=== PATIENT | female | born 1965 | race Caucasian/White ===

== ENCOUNTER 2019-06-29 06:41 | Emergency (ER) | payer OTHER ==
[~2019-06-29] VITALS: Ht 157.5 cm; Wt 70.5 kg
[2019-06-29] MEDS ORDERED: FLUO20CA19 PO (06:47)
[2019-06-29] MEDS ORDERED: SYNT75TA PO (06:47)
[2019-06-29 07:23] LABS: HEMATOCRIT 42.1 % (36.0-47.0); HEMOGLOBIN 13.6 g/dl (12.0-15.5); MEAN CORPUSCULAR HEMOGLOBIN 29.4 pg (27.0-33.0); MEAN CORPUSCULAR HGB CONC 32.3 g/dl (32.0-36.5); MEAN CORPUSCULAR VOLUME 90.9 fl (80.0-96.0); PLATELET COUNT, AUTOMATED 215 10^3/uL (150-450); RED BLOOD COUNT 4.63 10^6/uL (4.00-5.40); WHITE BLOOD COUNT 10.8 10^3/uL (4.0-10.0)
[2019-06-29 07:56] LABS: ALBUMIN 3.9 GM/DL (3.2-5.2); ALT/SGPT 18 U/L (12-78); BILIRUBIN,TOTAL 0.6 MG/DL (0.2-1.0); BLOOD UREA NITROGEN 10 MG/DL (7-18); CARBON DIOXIDE LEVEL 26 MEQ/L (21-32); CHLORIDE LEVEL 104 MEQ/L (98-107); CREATININE FOR GFR 0.76 MG/DL (0.55-1.30); GLOMERULAR FILTRATION RATE > 60.0 (>51); GLUCOSE, FASTING 117 MG/DL (70-100); POTASSIUM SERUM 3.7 MEQ/L (3.5-5.1); SODIUM LEVEL 137 MEQ/L (136-145)
[2019-06-29] MEDS ORDERED: ONDANSETRON 4MG/2ML VIAL (J2405) IV ONE (08:15)
[2019-06-29] MEDS ORDERED: NS 500 ML IV ONE (08:15)
[2019-06-29] MEDS ORDERED: MECLIZINE 25 MG TABLET PO ONE (08:15)
[2019-06-29 08:46] LABS: FREE T4 1.44 NG/DL (0.76-1.46)
--- NOTE | 2019-06-29 08:51 | REP ---
Clinical: Dizziness. Comparison: None . Findings: The ventricles, sulci, and cisterns are normal in position and appearance. Mccloud-white differentiation is maintained. No acute intracranial hemorrhage, mass/mass effect, pathology or trauma/injury. No evidence for acute infarction. No extra-axial fluid collection. Calvarium is intact. Paranasal sinuses and mastoid air cells are clear. Impression: Normal noncontrast head CT. No evidence for acute intracranial pathology or trauma/injury. Electronically Signed by Mert Cavazos MD 06/29/2019 08:42 A
--- NOTE | 2019-06-29 10:23 | REP ---
MRI brain: 06/29/2019. Indication: Stroke. Comparison: No previous MRI studies are available for direct comparison. Technique: Multiplanar short and long TR sequences of the brain were performed without IV Gadolinium. Findings: There are no areas of restricted diffusion. There is no intracranial mass effect. No hydrocephalus or significant hemorrhage are detected. The craniocervical junction is unremarkable as are the midline structures. The large intracranial flow voids are present. Right mastoid effusion is noted. Impression: No acute intracranial process. Small right mastoid effusion. Electronically Signed by Ti Clayton DO 06/29/2019 10:15 A
[2019-06-29] MEDS ORDERED: MECL-68 PO (10:58)
[2019-06-29] MEDS ORDERED: ONDA4TAB6 PO (10:58)
[2019-06-29 11:01] VITALS: BP 153/66
--- NOTE | 2019-06-29 16:06 | ED PDOC ---
Post-Departure Follow-Up yuko castellanos faxed formal report of mri brain for fu Bari Wolf MD Jun 29, 2019 16:06
== END 2019-06-29 11:15 | disposition home or self-care (01) ==
LOC: M ED 06:41
DX: H83.09 Labyrinthitis, unspecified ear (principal); E07.9 Disorder of thyroid, unspecified; F33.9 Major depressive disorder, recurrent, unspecified; Z79.899 Other long term (current) drug therapy; Z79.890 Hormone replacement therapy
CPT/HCPCS: 70450; 70551; 80053; 84439; 84443; 85027; 96374; 99284; J2405

== ENCOUNTER → 2020-10-30 | Outpatient (REF) | payer OTHER ==
[~2020-10-30] MED LIST: FLUO20CA22 PO; MECL1TAB31 PO; ONDA4TAB6 PO; SYNT75TA PO
== END ==
LOC: M SFHCWAGY 17:12
PROVIDERS: ATTEND Specialist
DX: Z12.4 Encounter for screening for malignant neoplasm of cervix (principal)

== ENCOUNTER → 2022-01-07 | Outpatient (REF) | payer OTHER | LOC: M SFHCWAGY 13:02 | PROVIDERS: ATTEND Specialist | DX: Z01.419 Encounter for gynecological examination (general) (routine) without abnormal findings (principal); R87.610 Atypical squamous cells of undetermined significance on cytologic smear of cervix (ASC-US); R87.618 Other abnormal cytological findings on specimens from cervix uteri | CPT/HCPCS: 87624; G0123 ==

== ENCOUNTER → 2023-04-08 | Outpatient (REF) | payer OTHER ==
[2023-04-08 17:34] LABS: BASO % 0.8 % (0.0-1.0); EOS # 0.1 10^3/uL (0.0-0.5); EOS % 1.9 % (0.0-3.0); HEMATOCRIT 42.9 % (36.0-47.0); HEMOGLOBIN 13.8 g/dl (12.0-15.5); LYMPH # 2.5 10^3/uL (1.5-5.0); LYMPH % 47.8 % (24.0-44.0); MEAN CORPUSCULAR HEMOGLOBIN 30.4 pg (27.0-33.0); MEAN CORPUSCULAR HGB CONC 32.2 g/dl (32.0-36.5); MEAN CORPUSCULAR VOLUME 94.5 fl (80.0-96.0); MONO # 0.5 10^3/uL (0.0-0.8); MONO % 8.8 % (2.0-8.0); NEUTROPHILS # 2.1 10^3/uL (1.5-8.5); NEUTROPHILS % 40.3 % (36.0-66.0); PLATELET COUNT, AUTOMATED 178 10^3/uL (150-450); RED BLOOD COUNT 4.54 10^6/uL (4.00-5.40); WHITE BLOOD COUNT 5.2 10^3/uL (4.0-10.0)
[2023-04-08 17:59] LABS: ALBUMIN 3.8 G/DL (3.2-5.2); ALKALINE PHOSPHATASE 96 U/L (46-116); ALT/SGPT 18 U/L (7.0-40); AST/SGOT 12 U/L (<34); BILIRUBIN,TOTAL 0.4 MG/DL (0.3-1.2); BLOOD UREA NITROGEN 12 MG/DL (9-23); CARBON DIOXIDE LEVEL 27 MMOL/L (20-31); CHLORIDE LEVEL 106 MMOL/L (98-107); CHOLESTEROL LEVEL 227 MG/DL (<200); CHOLESTEROL RISK RATIO 2.65 (<5); CREATININE FOR GFR 0.64 MG/DL (0.55-1.30); GLOMERULAR FILTRATION RATE > 60.0 (>51); GLUCOSE, FASTING 90 MG/DL (60-100); HDL CHOLESTEROL 85.5 MG/DL (>40); LDL CHOLESTEROL 130.7 MG/DL (<100); NON-HDL-C 141.5 MG/DL; POTASSIUM SERUM 4.6 MMOL/L (3.5-5.1); SODIUM LEVEL 139 MMOL/L (136-145); TOTAL PROTEIN 7.2 G/DL (5.7-8.2); TRIGLYCERIDES LEVEL 54 MG/DL (<150)
[2023-04-08 18:01] LABS: THYROID STIMULATING HORMONE 1.455 uIU/ML (0.55-4.78)
== END ==
LOC: M LABDRWCV 17:01
PROVIDERS: ATTEND Physician Assistant
DX: E03.9 Hypothyroidism, unspecified (principal)

== ENCOUNTER 2023-06-06 23:07 | Emergency (ER) | payer OTHER ==
[~2023-06-06] VITALS: Ht 157.5 cm; Wt 72.7 kg
[~2023-06-06 23:07] MED LIST changes: +MECL-209 PO; -MECL1TAB31 PO
[2023-06-06 23:19] VITALS: TEMP 98.5
[2023-06-07] MEDS ORDERED: AMLO25TA PO (00:14)
[2023-06-07] MEDS ORDERED: amLODIPine 5 MG TAB PO ONE (00:15)
[2023-06-07 00:30] VITALS: O2SAT 98
[2023-06-07 00:46] VITALS: BP 141/74
== END 2023-06-07 00:51 | disposition home or self-care (01) ==
LOC: M ED 23:07
DX: I10 Essential (primary) hypertension (principal); E03.9 Hypothyroidism, unspecified; Z79.899 Other long term (current) drug therapy

== ENCOUNTER → 2023-09-21 | Outpatient (REF) | payer OTHER ==
[~2023-09-21] MED LIST changes: +AMLO25TA PO
== END ==
LOC: M SFHCWAGY 12:32
PROVIDERS: ATTEND Specialist
DX: Z12.4 Encounter for screening for malignant neoplasm of cervix (principal)
CPT/HCPCS: 87624; G0123

== ENCOUNTER → 2023-12-17 | Outpatient (REF) | payer OTHER ==
[2023-12-17 17:52] LABS: CHOLESTEROL RISK RATIO 2.86 (<5); HDL CHOLESTEROL 75.7 MG/DL (>40); LDL CHOLESTEROL 124.5 MG/DL (<100); NON-HDL-C 141.3 MG/DL
== END ==
LOC: M LABWUC 16:35
PROVIDERS: ATTEND Physician Assistant
DX: E78.5 Hyperlipidemia, unspecified (principal)

== ENCOUNTER → 2024-12-12 | Outpatient (REF) | payer OTHER ==
[~2024-12-12] MED LIST changes: +FLUO-365 PO; -FLUO20CA22 PO; +ONDA-282 PO; -ONDA4TAB6 PO
[2024-12-12 18:46] LABS: HEMATOCRIT 40.6 % (36.0-47.0); HEMOGLOBIN 12.8 g/dl (12.0-15.5); MEAN CORPUSCULAR HEMOGLOBIN 29.6 pg (27.0-33.0); MEAN CORPUSCULAR HGB CONC 31.5 g/dl (32.0-36.5); PLATELET COUNT, AUTOMATED 162 10^3/uL (150-450); RED BLOOD COUNT 4.32 10^6/uL (4.00-5.40); WHITE BLOOD COUNT 5.7 10^3/uL (4.0-10.0)
[2024-12-12 18:47] LABS: ALBUMIN 3.9 G/DL (3.2-5.2); ALKALINE PHOSPHATASE 85 U/L (35-104); ALT/SGPT 29 U/L (7.0-40); AST/SGOT 18 U/L (<34); BILIRUBIN,TOTAL 0.8 MG/DL (0.3-1.2); BLOOD UREA NITROGEN 14 MG/DL (9-23); CALCIUM LEVEL 9.3 MG/DL (8.5-10.1); CARBON DIOXIDE LEVEL 27 MMOL/L (20-31); CHLORIDE LEVEL 103 MMOL/L (98-107); CHOLESTEROL LEVEL 243 MG/DL (<200); CHOLESTEROL RISK RATIO 2.89 (<5); GLOMERULAR FILTRATION RATE > 90.0 (>51); GLUCOSE, FASTING 90 MG/DL (60-100); LDL CHOLESTEROL 144.6 MG/DL (<100); POTASSIUM SERUM 4.3 MMOL/L (3.5-5.1); SODIUM LEVEL 139 MMOL/L (136-145); THYROID STIMULATING HORMONE 0.576 uIU/ML (0.55-4.78); TOTAL PROTEIN 7.1 G/DL (5.7-8.2); TRIGLYCERIDES LEVEL 72 MG/DL (<150)
== END ==
LOC: M LABDRWCV 17:30
PROVIDERS: ATTEND Physician Assistant
DX: I10 Essential (primary) hypertension (principal); E78.5 Hyperlipidemia, unspecified; E03.9 Hypothyroidism, unspecified

== ENCOUNTER → 2025-03-02 | Outpatient (REF) | payer OTHER ==
[2025-03-07 14:49] LABS: HPV APTIMA Not Detected (Not Detected)
== END ==
LOC: M SFHCWAGY 15:09
PROVIDERS: ATTEND Specialist
DX: Z01.419 Encounter for gynecological examination (general) (routine) without abnormal findings (principal)
CPT/HCPCS: 87624; G0123